=== PATIENT | female | born 1980 | race Caucasian/White ===

== ENCOUNTER 2016-12-18 07:11 | Emergency (ER) | payer SELFPAY ==
[2016-12-18] MEDS ORDERED: HYDROMORPHONE HCL 1 MG/ML CPJ IVP ONE ×2 (07:29→10:11)
[2016-12-18] MEDS ORDERED: 0.9 % SODIUM CHLORIDE 1,000 ML BAG IV ONE ×2 (07:29→08:01)
[2016-12-18] MEDS ORDERED: ONDANSETRON HCL IV 4 MG/2 ML VIAL IV ONE (07:29)
[2016-12-18 07:45] LABS: HEMATOCRIT 47.1 % (35.0-47.0); HEMOGLOBIN 15.8 gm/dl (11.6-16.0); MEAN CELL VOLUME 99.8 fl (81-97); MEAN CORPUSCULAR HEMOGLOBIN 33.5 pg (27-33); MEAN CORPUSCULAR HGB CONC 33.5 g/dl (32-36); MEAN PLATELET VOLUME 9.7 fl (7.4-10.4); PLATELET COUNT 313 K/uL (130-400); RED BLOOD COUNT 4.72 M/uL (3.80-5.40); RED CELL DISTRIBUTION WIDTH 13.3 % (11.5-14.5); WHITE BLOOD COUNT W/O DIFF 17.2 K/uL (4.2-12.2)
--- NOTE | 2016-12-18 07:45 | Emergency Department Record ---
History of Present Illness - General Chief complaint: Nausea, Vomiting, Diarrhea Stated complaint: VOMITING Time Seen by Provider: 12/18/16 07:21 Source: Patient Mode of Arrival: EMS Limitations: No limitations - History of Present Illness Initial comments: The patient is here due to a 4 day hx of frequent nausea, vomiting, and upper abdominal pain. The vomiting is intermittent and is better now. The pain waxes and wanes and she denies any lower abdominal pain, diarrhea, vaginal issues or dysuria. The patient denies vomiting any blood and has a long hx of the same issues. She has been evaluated multiple times in the last 12 years for the same issues and no dx has been given. She states she gets this same problem a few times a year and her only abdominal surgery is a BTL. The patient has a long hx of alcohol abuse and was drinking heavily prior to the onset of the pain. She denies any alcohol intake for the last 4 days and is currently having a menstrual period. MD complaint: Nausea, Vomiting Onset/Timin -: Days(s) Description of Vomiting: Bilious, Watery Associated Abdominal Pain: Yes Location: Diffuse, Epigastric Radiation: None Severity: Mild Severity scale (1-10): 10 Consistency: Constant Improves with: None Worsens with: None Context: Alcohol abuse - Related Data Home Medications Medication Instructions Recorded Confirmed Last Taken Omeprazole Magnesium [Prilosec Otc] 20 mg PO DAILY 12/18/16 12/18/16 12/08/16 Previous Rx's Medication Instructions Recorded Ondansetron [Zofran Odt] 4 mg SL .Q4-6H PRN #12 tab.rapdis 12/18/16 Allergies Allergy/AdvReac Type Severity Reaction Status Date / Time cefaclor [From Ceclor] Allergy Severe HIVES Verified 12/18/16 07:18 Travel Screening - Travel/Exposure Within Last 30 Days Have you traveled within the last 30 days?: No - Travel/Exposure Within Last Year Have you traveled outside the [place] in the last year?: No - Additonal Travel Details Have you been exposed to anyone with a communicable illness?: No - Travel Symptoms Symptom Screening: None Review of Systems Constitutional: Denies: Chills, Fever Eyes: Denies: Eye discharge ENT: Denies: Congestion Respiratory: Denies: Cough, Dyspnea Cardiovascular: Denies: Arrhythmia, Chest pain Past Medical History - SOCIAL HISTORY Smoking Status: Current every day smoker Alcohol Use: Occassional Drug Use: Occassional Drug Use Detail:: Marijuana - RESPIRATORY Hx Respiratory Disorders: No - CARDIOVASCULAR Hx Cardio Disorders: No - NEURO Hx Neuro Disorders: No - GI Hx Reflux: Yes Hx Nausea/Vomiting: Yes Comment:: hx of a lambert badillo tear - Hx Genitourinary Disorders: No - ENDOCRINE Hx Endocrine Disorders: No - MUSCULOSKELETAL Hx Musculoskeletal Disorders: No - PSYCH Hx Psych Problems: No - HEMATOLOGY/ONCOLOGY Hx Hematology/Oncology Disorders: No Family Medical History Any Significant Family History?: Yes Physical Exam - General General Appearance: Alert, Oriented x3, Cooperative, No acute distress - Head Head exam: Atraumatic, Normocephalic, Normal inspection - Eye Eye exam: Normal appearance, PERRL - ENT Throat exam: Normal inspection. negative: Tonsillar erythema, Tonsillar exudate - Neck Neck exam: Normal inspection, Full ROM. negative: Lymphadenopathy, Tenderness - Respiratory Respiratory exam: Normal lung sounds bilaterally. negative: Respiratory distress - Cardiovascular Cardiovascular Exam: Regular rate, Normal rhythm, Normal heart sounds - GI/Abdominal GI/Abdominal exam: Soft, Normal bowel sounds, Tenderness (There is mild epigastric tenderness.). negative: Distended, Guarding, Rebound, Rigid - Extremities Extremities exam: Normal inspection, Full ROM, Normal capillary refill. negative: Tenderness - Neurological Neurological exam: Alert, Normal gait. negative: Abnormal gait, Motor sensory deficit Course Vital Signs 12/18/16 07:12 Temperature 98.9 F Pulse Rate 79 Respiratory 22 Rate Blood Pressure 122/70 Pulse Ox 97 - Reevaluation(s) Reevaluation #1: The patient is doing much better. She is resting comfortably with much less nausea and pain. 12/18/16 08:02 Reevaluation #2: The patient is doing much better at this time. She denies any nausea, vomiting or ANY abdominal pain. She is resting comfortably and has no abdominal tenderness on exam. 12/18/16 08:24 Reevaluation #3: The patient is doing much better at this time. She denies any AP, nausea, or vomiting. I did explain her CT results to her and the need for F/U with her PCP and for possibly to obtain a GI doctor referral for an EGD. 12/18/16 10:54 Medical Decision Making - Data Complexity MDM Data: Labs Ordered and/or Reviewed, X-Ray Ordered and/or Reviewed - Lab Data Result diagrams: 12/18/16 07:10 12/18/16 07:10 - Radiology Data Radiology results: Report reviewed (CT: No acute abnormality. Possible distal esophageal wall thickening.) Disposition Disposition: Discharge Clinical Impression: Vomiting Qualifiers: Vomiting type: unspecified Vomiting Intractability: non-intractable Nausea presence: with nausea Qualified Code(s): R11.2 - Nausea with vomiting, unspecified Disposition: Home, Self-Care Condition: (1) Good Instructions: Acute Nausea and Vomiting (ED) Additional Instructions: Please use the Zofran for nausea and do not drink any alcohol. Please see your PCP later this week for recheck and to discuss the need for a GI doctor referral. Please return to the ER for any worsening of your chronic GI symptoms. Prescriptions: Ondansetron [Zofran Odt] 4 mg SL .Q4-6H PRN #12 tab.rapdis PRN Reason: Nausea Forms: Patient Portal Access Time of Disposition: 10:57 Quality - Quality Measures Quality Measures: N/A - Blood Pressure Screening View Details: Yes Blood Pressure Classification: Hypertensive Reading Systolic Measurement: 142 Diastolic Measurement: 69 Screening for High Blood Pressure: < Pre-Hypertensive BP, F/U Documented > [ G8950] Pre-Hypertensive Follow-up Interventions: Follow-up with rescreen every year.
[2016-12-18 07:58] LABS: ALBUMIN 4.6 gm/dL (3.5-5.0); ALKALINE PHOSPHATASE 61 U/L (38-126); ALT/SGPT 31 U/L (9-52); ANION GAP 15.7 (7-16); AST/SGOT 31 U/L (14-36); BILIRUBIN,TOTAL 1.81 mg/dL (0.2-1.3); BLOOD UREA NITROGEN 14 mg/dL (7-17); CARBON DIOXIDE 25.3 mmol/L (22-30); CREATININE 0.9 mg/dL (0.52-1.04); EST GLOMERULAR FILTRATION RATE > 60 ml/min; GLUCOSE,RANDOM 110 mg/dL (70-110); LIPASE 120 U/L (23-300); TOTAL PROTEIN 7.7 gm/dL (6.3-8.2)
[2016-12-18] MEDS ORDERED: ONDANSETRON HCL IV 4 MG/2 ML VIAL IVP ONE (09:02)
[2016-12-18] MEDS ORDERED: SUCRALFATE 1 G/10 ML UD PO ONE (09:02)
[2016-12-18 09:12] LABS: URINE APPEARANCE CLOUDY; URINE BILIRUBIN MODERATE (NEGATIVE); URINE BLOOD LARGE (NEGATIVE); URINE COLOR ORANGE; URINE GLUCOSE (UA) NEGATIVE (NEGATIVE); URINE LEUKOCYTE ESTERASE NEGATIVE (NEGATIVE); URINE NITRITE NEGATIVE (NEGATIVE); URINE PROTEIN TRACE (NEGATIVE)
[2016-12-18 09:13] LABS: HCG,QUALITATIVE URINE NEGATIVE (NEGATIVE); URINE KETONE 80 mg/dL (NEGATIVE)
[2016-12-18 09:24] LABS: URINE BACTERIA FEW; URINE MUCUS MODERATE; URINE WBC 0 - 2 (0-2/hpf)
--- NOTE | 2016-12-19 09:00 | CT SCAN REPORT ---
EXAM: CT OF THE ABDOMEN AND PELVIS WITHOUT CONTRAST HISTORY: UPPER ABDOMINAL PAIN WITH VOMITING. TECHNIQUE: Helical CT examination of the abdomen and pelvis was performed without oral or intravenous contrast administration. Lack of oral and IV contrast utilization limits evaluation of the bowel and solid viscera respectively. Comparison: None. FINDINGS: The lung bases are clear and there is no pleural or pericardial effusion. The heart is not enlarged. The wall of the distal esophagus appears mildly prominent in thickness. While this likely just relates to incomplete distention, a mucosal abnormality cannot be entirely excluded. Lack of IV contrast utilization limits evaluation of the solid viscera. No suspicious focal abnormality is demonstrated within the liver, spleen, pancreas, left adrenal gland, nor kidneys. A small hypodense mass is demonstrated within the right adrenal gland measuring 10 x 7 mm. This has a density of 5 Hounsfield units and is consistent with a small adenoma. The gallbladder is unremarkable and no biliary ductal dilatation is seen. No intraabdominal nor retroperitoneal lymphadenopathy is identified. The vasculature is unremarkable. No pelvic mass, lymphadenopathy, or free pelvic fluid is seen. The uterus is near the midline. A few follicles are suggested within the right ovary. The ovaries are not enlarged. No intrinsic urinary bladder abnormalities are identified though evaluation is limited by lack of distention. No gross bowel dilatation nor bowel wall thickening is seen. The appendix is visualized and normal in appearance. There may be a few diverticula within the left colon without evidence of diverticulitis. No free intraperitoneal air. A small fat filled umbilical hernia is present measuring 2.1 x 1.6 cm. No lytic or blastic bone lesion is seen. There are mild degenerative changes scattered within the visualized spine. IMPRESSION: 1. THE WALL OF THE DISTAL ESOPHAGUS APPEARS MILDLY PROMINENT IN THICKNESS. WHILE THIS LIKELY RELATES TO INCOMPLETE DISTENTION, MUCOSAL ABNORMALITY CANNOT BE ENTIRELY EXCLUDED. 2. NO CONVINCING CT EVIDENCE OF AN ACUTE INTRAABDOMINAL NOR INTRAPELVIC PROCESS THOUGH EVALUATION IS LIMITED BY LACK OF ORAL AND IV CONTRAST UTILIZATION. 3. NORMAL APPENDIX. 4. SMALL UNCOMPLICATED FAT FILLED UMBILICAL HERNIA. 5. OCCASIONAL DIVERTICULA QUESTIONED IN THE LEFT COLON WITHOUT EVIDENCE OF DIVERTICULITIS. 6. SMALL HYPODENSE NODULE/MASS IN THE RIGHT ADRENAL GLAND CONSISTENT WITH LIPID RICH ADENOMA. JOB NUMBER: [id number] MTDD
== END 2016-12-18 11:22 | disposition home or self-care (01) ==
LOC: ER 07:11
DX: R11.2 Nausea with vomiting, unspecified (principal); R10.13 Epigastric pain; R19.7 Diarrhea, unspecified
CPT/HCPCS: 99284 ×2; 96376; 96374; 96375; 96361; 83690; 80076; 80048; 81001; 81025; 85027; 74176; J2405; J1170; J7030

== ENCOUNTER 2016-12-18 16:52 | Inpatient (IN) | payer SELFPAY ==
[2016-12-18] MEDS ORDERED: HYDROMORPHONE HCL 1 MG/ML CPJ IVP ONE (17:03)
[2016-12-18] MEDS ORDERED: MAGNESIUM HYDROXIDE/AL HYDROX 30 ML, LIDOCAINE VISC 2% 200 MG PO ONE ×2 (17:03)
[2016-12-18] MEDS ORDERED: 0.9 % SODIUM CHLORIDE 1,000 ML BAG IV ONE (17:04)
--- NOTE | 2016-12-18 17:08 | Emergency Department Record ---
History of Present Illness - General Chief Complaint: Abdominal Pain Stated Complaint: ABD PAIN Time Seen by Provider: 12/18/16 16:59 Source: Patient Mode of Arrival: EMS Limitations: No limitations - History of Present Illness Initial Comments: The patient is here due to recurrent nausea, vomiting, and abdominal pain. The pain started 4 days ago after a bout of heavy alcohol intake. She then has had the vomiting, pain and nausea since. She was in the ER 10 hours ago with the same thing and received 2 liters of IVF and had a neg abdominal CT. She did also receive pain meds, Zofran and Carafate and was completely better at discharge. She states the pain returned over the last few hours with vomiting and anxiety. There has been no fever, back pain, or lower abdominal pain. MD Complaint: Abdominal pain Onset/Timin -: Days(s) Location: Diffuse Severity: Moderate Quality: Aching Consistency: Constant - Related Data LMP Date: 12/18/16 Home Medications Medication Instructions Recorded Confirmed Last Taken Omeprazole Magnesium [Prilosec Otc] 20 mg PO DAILY 12/18/16 12/18/16 1 Day Ago ~12/17/16 Previous Rx's Medication Instructions Recorded Ondansetron [Zofran Odt] 4 mg SL .Q4-6H PRN #12 tab.rapdis 12/18/16 Allergies Allergy/AdvReac Type Severity Reaction Status Date / Time cefaclor [From Ceclor] Allergy Severe HIVES Verified 12/18/16 16:59 Travel Screening - Travel/Exposure Within Last 30 Days Have you traveled within the last 30 days?: No - Travel/Exposure Within Last Year Have you traveled outside the [place] in the last year?: No - Additonal Travel Details Have you been exposed to anyone with a communicable illness?: No - Travel Symptoms Symptom Screening: None Review of Systems Constitutional: Denies: Chills, Fever Eyes: Denies: Eye discharge ENT: Denies: Congestion Respiratory: Denies: Cough, Dyspnea Past Medical History - SOCIAL HISTORY Smoking Status: Current every day smoker Alcohol Use: None Drug Use: Occassional Drug Use Detail:: Marijuana - RESPIRATORY Hx Respiratory Disorders: No - CARDIOVASCULAR Hx Cardio Disorders: No - NEURO Hx Neuro Disorders: No - GI Hx GI Disorders: No Hx Reflux: Yes Hx Nausea/Vomiting: Yes Comment:: hx of a lambert badillo tear - Hx Genitourinary Disorders: No - ENDOCRINE Hx Endocrine Disorders: No - MUSCULOSKELETAL Hx Musculoskeletal Disorders: No - PSYCH Hx Psych Problems: No - HEMATOLOGY/ONCOLOGY Hx Hematology/Oncology Disorders: No Family Medical History Any Significant Family History?: Yes Physical Exam - General General Appearance: Alert, Oriented x3, Cooperative, No acute distress - Head Head exam: Atraumatic, Normocephalic, Normal inspection - Eye Eye exam: Normal appearance, PERRL - Neck Neck exam: Normal inspection, Full ROM. negative: Tenderness - Respiratory Respiratory exam: Normal lung sounds bilaterally - Cardiovascular Cardiovascular Exam: Regular rate, Normal rhythm, Normal heart sounds - GI/Abdominal GI/Abdominal exam: Soft, Normal bowel sounds. negative: Distended, Hypoactive bowel sounds, Rebound, Rigid, Tenderness - Extremities Extremities exam: Normal inspection, Full ROM, Normal capillary refill. negative: Tenderness - Back Back exam: Denies: Normal inspection, Vertebral tenderness - Neurological Neurological exam: Alert, Normal gait. negative: Abnormal gait, Motor sensory deficit - Psychiatric Psychiatric exam: Anxious. negative: Agitated, Depressed, Flat affect Course Vital Signs 12/18/16 16:54 Temperature 98.5 F Pulse Rate 73 Respiratory 18 Rate Blood Pressure 161/85 Pulse Ox 100 - Reevaluation(s) Reevaluation #1: The patient is doing much better now after her medicines. She is much more relaxed and denies any pain or nausea. 12/18/16 17:29 Reevaluation #2: The patient is doing much better at this time. She denies any AP and her abdomen is very soft and nontender in all 4 quads. Because of the recurrent nature of her problems I did recommend hospital admission and she agrees. I then did discuss the case with Dr. Parks and he agrees to the plan. 12/18/16 18:05 Medical Decision Making - Data Complexity MDM Data: Labs Ordered and/or Reviewed, EKG Ordered and/or Reviewed - Lab Data Result diagrams: 12/18/16 17:10 12/18/16 17:10 - EKG Data -: EKG Interpreted by Me EKG: No Acute Changes, Normal EKG Disposition Disposition: Admit Clinical Impression: Intractable vomiting with nausea Qualifiers: Vomiting type: cyclical vomiting Qualified Code(s): G43.A1 - Cyclical vomiting , intractable Disposition: Still a Patient at [facility] Decision to Admit: Admit from ER Decision to Admit Date: 12/18/16 Decision to Admit Time: 18:06 Accepting Physician: Kasey Time Discussed w/Accepting Physician: 18:06 Condition: (2) Stable Forms: Patient Portal Access Time of Disposition: 18:06 Quality - Quality Measures Quality Measures: N/A - Blood Pressure Screening Blood Pressure Classification: Pre-Hypertensive BP Reading Systolic Measurement: 161 Diastolic Measurement: 85 Screening for High Blood Pressure: < Pre-Hypertensive BP, F/U Documented > [ G8950] Pre-Hypertensive Follow-up Interventions: Follow-up with rescreen every year.
[2016-12-18 17:20] LABS: BASO % 0.1 % (0-6); EOS % 0.2 % (0-6); GRAN % 78.1 % (47-80); HEMATOCRIT 41.7 % (35.0-47.0); HEMOGLOBIN 13.9 gm/dl (11.6-16.0); MEAN CELL VOLUME 100.2 fl (81-97); MEAN CORPUSCULAR HEMOGLOBIN 33.4 pg (27-33); MEAN CORPUSCULAR HGB CONC 33.3 g/dl (32-36); MEAN PLATELET VOLUME 9.6 fl (7.4-10.4); MONO % 8.6 % (0-9); PLATELET COUNT 290 K/uL (130-400); RED BLOOD COUNT 4.16 M/uL (3.80-5.40); RED CELL DISTRIBUTION WIDTH 13.1 % (11.5-14.5); WHITE BLOOD COUNT W/O DIFF 14.6 K/uL (4.2-12.2)
[2016-12-18] MEDS: PANTOPRAZOLE SODIUM IV 40 MG VIAL IVP ONE (17:23)
[2016-12-18 17:28] LABS: ALB/GLOB RATIO 1.6 (1.1-1.8); ALBUMIN 3.9 gm/dL (3.5-5.0); ALKALINE PHOSPHATASE 47 U/L (38-126); ALT/SGPT 41 U/L (9-52); ANION GAP 10.9 (7-16); AST/SGOT 46 U/L (14-36); BILIRUBIN,TOTAL 1.67 mg/dL (0.2-1.3); BLOOD UREA NITROGEN 12 mg/dL (7-17); CARBON DIOXIDE 23.1 mmol/L (22-30); CREATININE 0.7 mg/dL (0.52-1.04); EST GLOMERULAR FILTRATION RATE > 60 ml/min; GLUCOSE,RANDOM 92 mg/dL (70-110); LIPASE 219 U/L (23-300); TOTAL PROTEIN 6.4 gm/dL (6.3-8.2)
[2016-12-18] MEDS ORDERED: POTASSIUM CHLORIDE/D5-0.9%NACL 20 MEQ/1,000 ML BAG IV ONE (18:35)
[2016-12-18] MEDS: HYDROMORPHONE HCL 1 MG/ML CPJ IVP PRN ×2 (18:55→22:57)
[2016-12-18] MEDS: ONDANSETRON HCL IV 4 MG/2 ML VIAL IVP PRN (20:53)
[2016-12-18] MEDS ORDERED: DIPHENHYDRAMINE HCL 25 MG CAPSULE PO PRN (21:51)
[2016-12-19] MEDS: ONDANSETRON HCL IV 4 MG/2 ML VIAL IVP PRN ×5 (02:20→20:19)
[2016-12-19] MEDS: HYDROMORPHONE HCL 1 MG/ML CPJ IVP PRN ×5 (02:55→20:13)
[2016-12-19 06:13] LABS: BASO % 0.2 % (0-6); EOS % 0.5 % (0-6); GRAN % 69.1 % (47-80); HEMATOCRIT 41.5 % (35.0-47.0); HEMOGLOBIN 13.5 gm/dl (11.6-16.0); LYMPH % 20.6 % (16-45); MEAN CELL VOLUME 101.7 fl (81-97); MEAN CORPUSCULAR HEMOGLOBIN 33.1 pg (27-33); MEAN CORPUSCULAR HGB CONC 32.5 g/dl (32-36); MEAN PLATELET VOLUME 9.2 fl (7.4-10.4); MONO % 9.6 % (0-9); PLATELET COUNT 260 K/uL (130-400); RED BLOOD COUNT 4.08 M/uL (3.80-5.40); RED CELL DISTRIBUTION WIDTH 13.2 % (11.5-14.5); WHITE BLOOD COUNT W/O DIFF 10.1 K/uL (4.2-12.2)
[2016-12-19 06:36] LABS: ALB/GLOB RATIO 1.6 (1.1-1.8); ALBUMIN 3.6 gm/dL (3.5-5.0); ALKALINE PHOSPHATASE 46 U/L (38-126); ALT/SGPT 50 U/L (9-52); ANION GAP 10.4 (7-16); AST/SGOT 27 U/L (14-36); BILIRUBIN,TOTAL 1.31 mg/dL (0.2-1.3); BLOOD UREA NITROGEN 8 mg/dL (7-17); CARBON DIOXIDE 24.6 mmol/L (22-30); CREATININE 0.8 mg/dL (0.52-1.04); EST GLOMERULAR FILTRATION RATE > 60 ml/min; GLUCOSE,RANDOM 101 mg/dL (70-110); LIPASE 145 U/L (23-300); TOTAL PROTEIN 5.9 gm/dL (6.3-8.2)
[2016-12-19] MEDS ORDERED: PANTOPRAZOLE SODIUM IV 40 MG VIAL IV SCH (10:00)
[2016-12-19] MEDS ORDERED: DIPHENHYDRAMINE HCL IV 50 MG/ML VIAL IVP PRN (10:22)
--- NOTE | 2016-12-19 10:49 | History & Physical ---
History of Present Illness - Date of Service Date of Service for History & Physical: 12/19/16 - History of Present Illness Admitting Diagnosis: 1. Intractable vomiting with abdominal pain. History of Present Illness: 36 yo female admitted w/ CC of epigastric pain. PMHx of abdominal pain, smoking , h/o alcohol abuse, anxiety. Patient presented to our ED yesterday morning for abdominal pain. CTA relatively unremarkable aside from potentially thickened esophagus. She was given 2 L's of IVFs, 1 mg of Dilaudid, 8 mg of Zofran and 1 gm of Carafate. Patient d/c'd encouraged to follow up with her PCP for referral to GI. Patient presented back to our ED around 3 pm and was admitted. This morning, patient is lying in bed sleeping. When awoken, patient became very anxious that she was being discharged. Patient then began to c/o extreme epigastric pain. Requesting her pain medication. Pain described as sharp, stabbing, burning. Rated 5/10 in severity. Aggravated by etoh use. States she drank multiple margaritas on Sunday, which exacerbated her pain. She admits to etoh abuse daily since December 12. Unable to tell me how much she's been drinking every day though states she's been drinking liquor. Pain alleviated by 0.5 mg of Dilaudid, zofran, NPO and rest. Associated symptoms include nausea, anxiety, acid reflux. She has not vomited during her admission. She denies any vaginal d/c, pain with urination, hemautria, change in bowel habits, back pain, black or bloody stool, blood in vomit, or fever/ chills. Patient reports similar hospitalizations for these exact same symptoms. States she hasn't been hospitalized in the past year for them, however. Denies drug use. Abd surgeries include BTL. Long h/o acid reflux- can only afford to take omeprazole 20 mg prn. Travel Screening - Travel/Exposure Within Last 30 Days Have you traveled within the last 30 days?: No - Travel/Exposure Within Last Year Have you traveled outside the [place] in the last year?: No - Additonal Travel Details Have you been exposed to anyone with a communicable illness?: No - Travel Symptoms Symptom Screening: None Review of Systems Constitutional: Denies: Chills, Fever Eyes: Denies: Eye discharge ENT: Denies: Congestion Respiratory: Denies: Cough, Dyspnea Cardiovascular: Denies: Chest pain, Dyspnea on exertion, Edema, Palpitations Gastrointestinal: Reports: Abdominal pain (epigastrium ), Nausea. Denies: Constipation, Diarrhea, Hematemesis, Hematochezia, Melena, Vomiting Genitourinary: Denies: Abnormal menses, Dysuria, Hematuria, Urgency Musculoskeletal: Denies: Back pain, Myalgia Skin: Denies: Change in color Neurological: Denies: Abnormal gait, Confusion Psychiatric: Reports: Anxiety. Denies: Depression Hematological/Lymphatic: Denies: Easy bleeding Past Medical History - SOCIAL HISTORY Smoking Status: Current every day smoker Alcohol Use: Heavy Alcohol Use Comment: daily 12/12/16-12/15/16 until abdominal pain started on 12/15/16 Drug Use: Occassional Drug Use Detail:: Marijuana - RESPIRATORY Hx Respiratory Disorders: No - CARDIOVASCULAR Hx Cardio Disorders: No - NEURO Hx Neuro Disorders: No - GI Hx GI Disorders: No Hx Reflux: Yes Hx Nausea/Vomiting: Yes Comment:: hx of a lambert badillo tear with hyperemesis gravidarum - Hx Genitourinary Disorders: No - ENDOCRINE Hx Endocrine Disorders: No - MUSCULOSKELETAL Hx Musculoskeletal Disorders: No - PSYCH Hx Psych Problems: No - HEMATOLOGY/ONCOLOGY Hx Hematology/Oncology Disorders: No Family Medical History Any Significant Family History?: Yes H&P Meds/Allergies - Allergies Allergies: Allergies Allergy/AdvReac Type Severity Reaction Status Date / Time cefaclor [From Ceclor] Allergy Severe HIVES Verified 12/18/16 16:59 - Home Medications Home Medications Medication Instructions Recorded Confirmed Last Taken Omeprazole Magnesium [Prilosec Otc] 20 mg PO DAILY 12/18/16 12/18/16 1 Day Ago ~12/17/16 Previous Rx's Medication Instructions Recorded Ondansetron [Zofran Odt] 4 mg SL .Q4-6H PRN #12 tab.rapdis 12/18/16 - Active Medications Active Medications: Current Medications Diphenhydramine HCl (Benadryl Capsule) 50 mg PO QHS PRN PRN Reason: INSOMNIA Last Admin: 12/18/16 21:56 Dose: 50 mg Diphenhydramine HCl (Benadryl Iv) 50 mg IVP QHS PRN PRN Reason: SLEEP Hydromorphone HCl (Dilaudid) 0.5 mg IVP Q4H PRN PRN Reason: Abdominal Pain Last Admin: 12/19/16 07:07 Dose: 0.5 mg Ondansetron HCl (Zofran) 4 mg IVP Q4H PRN PRN Reason: NAUSEA Last Admin: 12/19/16 10:23 Dose: 4 mg Pantoprazole Sodium (Protonix Iv) 40 mg IV BID TAYE Sucralfate (Carafate) 1 g PO QID TAYE Physical Exam - Vital Signs Vital Signs: Vital Signs - Last 24 Hrs Temp Pulse Resp BP Pulse Ox 12/19/16 08:23 98.1 F 98 H 20 109/74 98 12/19/16 06:00 98.5 F 55 L 18 156/87 96 12/18/16 23:00 98.6 F 54 L 16 130/73 94 L 12/18/16 20:46 98.3 F 50 L 16 150/81 98 - General General Appearance: Alert, Oriented x3, Cooperative, No acute distress Limitations: No limitations - Head Head exam: Atraumatic, Normocephalic, Normal inspection - Eye Eye exam: Normal appearance, PERRL - ENT ENT exam: Normal exam Ear exam: Normal external inspection Nasal Exam: Normal inspection Mouth exam: Normal external inspection - Neck Neck exam: Normal inspection, Full ROM. negative: Tenderness - Respiratory Respiratory exam: Normal lung sounds bilaterally - Cardiovascular Cardiovascular Exam: Regular rate, Normal rhythm, Normal heart sounds - GI/Abdominal GI/Abdominal exam: Soft, Normal bowel sounds, Tenderness (epigastrium). negative: Diminished bowel sounds, Distended, Guarding, Hyperactive bowel sounds , Hypoactive bowel sounds, Rebound, Rigid - Rectal Rectal exam: Deferred - exam: Deferred - Extremities Extremities exam: Normal inspection, Full ROM, Normal capillary refill. negative: Tenderness - Back Back exam: Denies: Normal inspection, Vertebral tenderness - Neurological Neurological exam: Alert, Normal gait. negative: Abnormal gait, Motor sensory deficit - Psychiatric Psychiatric exam: Anxious. negative: Agitated, Depressed, Flat affect Results - Labs Result Diagrams: 12/19/16 06:05 12/19/16 06:05 Labs Last 24 Hours: Laboratory Results - last 24 hr 12/19/16 12/19/16 06:05 06:05 WBC 10.1 RBC 4.08 Hgb 13.5 Hct 41.5 MCV 101.7 H MCH 33.1 H MCHC 32.5 RDW 13.2 Plt Count 260 MPV 9.2 Gran % 69.1 Lymphocytes % 20.6 Monocytes % 9.6 H Eosinophils % 0.5 Basophils % 0.2 Sodium 144 Potassium 4.1 Chloride 109 H Carbon Dioxide 24.6 Anion Gap 10.4 BUN 8 Creatinine 0.8 Estimated GFR > 60 Random Glucose 101 Calcium 8.0 L Total Bilirubin 1.31 H AST 27 ALT 50 Alkaline Phosphatase 46 Total Protein 5.9 L Albumin 3.6 Globulin 2.3 Albumin/Globulin Ratio 1.6 Lipase 145 VTE H&P Assessment - Risk for VTE Risk for VTE: Yes Risk Level: Very Low Risk Assessment Date: 12/19/16 Risk Assessment Time: 10:00 VTE Orders Placed or Will Be Placed: Yes Plan - Detailed Diagnosis and Plan (1) Epigastric pain Current Visit: Yes Status: Acute Base Code: R10.13 - EPIGASTRIC PAIN Comment: 12/19/16: gastritis vs. gastroparesis vs. other? - CTA potential thickened esophagus, o/w relatively unreamrkable. WBC normal. Afebrile. - normal lipase. ALT/AST normalized. Bilirubin trending down (i suspect elevated due to etoh abuse) - Protonix 40 mg BID, carafate 1 gm QID - Dilaudid 0.5 mg Q4 hours PRN (will trial transition to PO pain medications later today) - anti emetics (IV Zofran PRN) - Will continue to hold IVF's if patient tolerates PO liquids. - CLD - monitor for vomiting, blood in stool, hematemesis. - patient needs family physician and likely GI referral. (2) Acid reflux Current Visit: Yes Status: Acute Base Code: K21.9 - GASTRO-ESOPHAGEAL REFLUX DISEASE WITHOUT ESOPHAGITIS Comment: 12/19/16: will increase protonix to 40 mg IV BID and add carafate 1 gm QID. Clear liquids as tolerated. (3) DVT prophylaxis Current Visit: Yes Status: Acute Base Code: [id number] - Comment: 12/19/16: low risk- decreased mobility. ambulating through the room. SCDs WIB. (4) Full code status Current Visit: Yes Status: Acute Base Code: Z78.9 - OTHER SPECIFIED HEALTH STATUS Comment: 12/19/16: she will remain full code
[2016-12-19] MEDS: SUCRALFATE 1 G/10 ML UD PO SCH ×3 (12:06→20:23)
[2016-12-19] MEDS: PANTOPRAZOLE SODIUM IV 40 MG VIAL IVP ONE (12:06)
[2016-12-19] MEDS ORDERED: MECLIZINE 25 MG TABLET PO PRN (16:26)
[2016-12-20] MEDS: ONDANSETRON HCL IV 4 MG/2 ML VIAL IVP PRN ×6 (00:30→21:16)
[2016-12-20] MEDS: PANTOPRAZOLE SODIUM IV 40 MG VIAL IV SCH ×3 (00:33→21:16)
[2016-12-20] MEDS: HYDROMORPHONE HCL 1 MG/ML CPJ IVP PRN ×6 (00:35→21:17)
[2016-12-20] MEDS: SUCRALFATE 1 G/10 ML UD PO SCH ×5 (00:41→21:16)
--- NOTE | 2016-12-20 12:54 | Physician Progress Note ---
Subjective - Date Date of Physician Progress Note: 12/20/16 - Subjective Subjective Comment: lying in bed. states she feels much better than yesterday. trialled ice chips , however threw it up this morning. she's starting to have more of an appetite. epigastric pain continues, though significantly improved. admits to a lot of stress at home. has slept most of the morning. went about 5 hours without IV pain medications. nausea improved. no diarrhea/constipation. Objective - Vital Signs Vital Signs: Vital Signs - Last 24 Hrs Temp Pulse Resp BP BP Pulse Ox 12/20/16 07:59 54 L 16 12/20/16 07:58 99.0 F 54 L 16 159/91 97 12/20/16 04:25 99.1 F 50 L 16 174/84 97 12/19/16 18:58 20 12/19/16 18:00 141/78 12/19/16 14:47 97 F L 190/96 12/19/16 14:00 97 H 20 190/96 - General General Appearance: Alert, Oriented x3, Cooperative, No acute distress Limitations: No limitations - Head Head exam: Atraumatic, Normocephalic, Normal inspection - Eye Eye exam: Normal appearance, PERRL - ENT ENT exam: Normal exam Ear exam: Normal external inspection Nasal Exam: Normal inspection Mouth exam: Normal external inspection - Neck Neck exam: Normal inspection, Full ROM. negative: Tenderness - Respiratory Respiratory exam: Normal lung sounds bilaterally - Cardiovascular Cardiovascular Exam: Regular rate, Normal rhythm, Normal heart sounds - GI/Abdominal GI/Abdominal exam: Soft, Normal bowel sounds, Tenderness (epigastrium, improved) . negative: Diminished bowel sounds, Distended, Guarding, Hyperactive bowel sounds, Hypoactive bowel sounds, Rebound, Rigid - Rectal Rectal exam: Deferred - exam: Deferred - Extremities Extremities exam: Normal inspection, Full ROM, Normal capillary refill. negative: Tenderness - Back Back exam: Denies: Normal inspection, Vertebral tenderness - Neurological Neurological exam: Alert, Normal gait. negative: Abnormal gait, Motor sensory deficit - Psychiatric Psychiatric exam: Anxious. negative: Agitated, Depressed, Flat affect Assessment and Plan - Assessment and Plan (1) Epigastric pain Current Visit: Yes Status: Acute Base Code: R10.13 - EPIGASTRIC PAIN Comment: 12/20/16: gastritis vs. gastroparesis vs. other? - CTA potential thickened esophagus, o/w relatively unreamrkable. WBC normal. Afebrile. - normal lipase. ALT/AST normalized. Bilirubin trending down (i suspect elevated due to etoh abuse) - Protonix 40 mg BID, carafate 1 gm QID - Dilaudid 0.5 mg Q4 hours PRN- I will, once again, trial transition to PO pain medications later today. - anti emetics (IV Zofran PRN) - Will continue to hold IVF's if patient tolerates PO liquids. - CLD - monitor for vomiting, blood in stool, hematemesis. - patient needs family physician - GI referral placed (2) Acid reflux Current Visit: Yes Status: Acute Base Code: K21.9 - GASTRO-ESOPHAGEAL REFLUX DISEASE WITHOUT ESOPHAGITIS Comment: 12/20/16: continue protonix to 40 mg IV BID and carafate 1 gm QID. Clear liquids as tolerated. (3) DVT prophylaxis Current Visit: Yes Status: Acute Base Code: [id number] - Comment: 12/20/16: low risk- decreased mobility. ambulating through the room. SCDs WIB. (4) Full code status Current Visit: Yes Status: Acute Base Code: Z78.9 - OTHER SPECIFIED HEALTH STATUS Comment: 12/20/16: she will remain full code Results - Labs Result Diagrams: 12/19/16 06:05 12/19/16 06:05 DVT/PE Assessment - Risk for VTE Risk for VTE: No Risk Level: Very Low Risk Assessment Date: 12/19/16 Risk Assessment Time: 10:00 VTE Orders Placed or Will Be Placed: Yes - Active Medicaitons Current Medications: Current Medications Diphenhydramine HCl (Benadryl Capsule) 50 mg PO QHS PRN PRN Reason: INSOMNIA Last Admin: 12/18/16 21:56 Dose: 50 mg Diphenhydramine HCl (Benadryl Iv) 50 mg IVP QHS PRN PRN Reason: SLEEP Hydromorphone HCl (Dilaudid) 0.5 mg IVP Q4H PRN PRN Reason: Abdominal Pain Last Admin: 12/20/16 12:40 Dose: 0.5 mg Meclizine HCl (Antivert) 25 mg PO Q8H PRN PRN Reason: Dizziness Ondansetron HCl (Zofran) 4 mg IVP Q4H PRN PRN Reason: NAUSEA Last Admin: 12/20/16 12:41 Dose: 4 mg Pantoprazole Sodium (Protonix Iv) 40 mg IV BID [facility] Last Admin: 12/20/16 09:33 Dose: 40 mg Sucralfate (Carafate) 1 g PO QID [facility] Last Admin: 12/20/16 09:32 Dose: 1 g AMI Plan - Labs Result Diagrams: 12/19/16 06:05 12/19/16 06:05
[2016-12-21] MEDS: HYDROMORPHONE HCL 1 MG/ML CPJ IVP PRN ×2 (01:22→07:06)
[2016-12-21] MEDS: ONDANSETRON HCL IV 4 MG/2 ML VIAL IVP PRN ×2 (01:24→07:06)
--- NOTE | 2016-12-21 10:44 | Discharge Summary ---
Providers Discharge Summary Date: 12/21/16 Date of admission: 12/18/16 18:20 Expected Date of Discharge: 12/21/16 Attending physician: CARIN ALARCON Consults: Consult Orders 12/20/16 10:36 Consult NOW Consulting Provider: DOREEN BUENROSTRO Physician Instructions: Reason For Exam: n/v, epigastric pain, potential esophagitis Physical Exam - Vital Signs Vital Signs: Vital Signs - Last 24 Hrs Temp Pulse Resp BP Pulse Ox 12/21/16 09:00 97.7 F 58 L 16 132/77 96 12/21/16 01:30 98.9 F 59 L 16 138/77 99 12/20/16 18:52 98.7 F 58 L 14 158/78 97 12/20/16 15:00 98.7 F 53 L 14 151/98 96 12/20/16 11:00 98.8 F 58 L 14 148/90 96 - General General Appearance: Alert, Oriented x3, Cooperative, No acute distress Limitations: No limitations - Head Head exam: Atraumatic, Normocephalic, Normal inspection - Eye Eye exam: Normal appearance, PERRL - ENT ENT exam: Normal exam Ear exam: Normal external inspection Nasal Exam: Normal inspection Mouth exam: Normal external inspection - Neck Neck exam: Normal inspection, Full ROM. negative: Tenderness - Respiratory Respiratory exam: Normal lung sounds bilaterally - Cardiovascular Cardiovascular Exam: Regular rate, Normal rhythm, Normal heart sounds - GI/Abdominal GI/Abdominal exam: Soft, Normal bowel sounds. negative: Diminished bowel sounds , Distended, Guarding, Hyperactive bowel sounds, Hypoactive bowel sounds, Rebound, Rigid, Tenderness - Rectal Rectal exam: Deferred - exam: Deferred - Extremities Extremities exam: Normal inspection, Full ROM, Normal capillary refill. negative: Tenderness - Back Back exam: Denies: Normal inspection, Vertebral tenderness - Neurological Neurological exam: Alert, Normal gait. negative: Abnormal gait, Motor sensory deficit - Psychiatric Psychiatric exam: Anxious. negative: Agitated, Depressed, Flat affect Hospitalization - Hospitalization Admission Diagnosis: 1. Intractable vomiting with abdominal pain. - Problem List/Discharge Diagnosis (1) Epigastric pain Current Visit: Yes Status: Acute Base Code: R10.13 - EPIGASTRIC PAIN Comment: 12/21/16: esophagitis vs. gastritis vs. gastroparesis vs. other? - CTA potential thickened esophagus, o/w relatively unreamrkable. WBC normal. Afebrile. - normal lipase. ALT/AST normalized. Bilirubin trending down (i suspect elevated due to etoh abuse) - EGD 12/21/16: esophgeal ulcers, repeat EGD recommended in 6-[address] Buenrostro's office at [phone] re scheduling this. - Continue PPI 40 mg BID, carafate 1 gm QID PRN. These have been sent to pharmacy - anti emetics (PO Zofran 4 mg TID prn) PRN - acid reflux diet - establish care with family doctor - return as needed (2) Acid reflux Current Visit: Yes Status: Acute Base Code: K21.9 - GASTRO-ESOPHAGEAL REFLUX DISEASE WITHOUT ESOPHAGITIS Comment: 12/21/16: continue ppi therapy 40 mg PO BID and carafate 1 gm QID prn. (3) Full code status Current Visit: Yes Status: Acute Base Code: Z78.9 - OTHER SPECIFIED HEALTH STATUS Comment: 12/21/16: pt remained full code - Hospitalization Course Disposition: Home, Self-Care Hospital Course: 36 yo female admitted w/ CC of epigastric pain. PMHx of abdominal pain, smoking , h/o alcohol abuse, anxiety. Patient presented to our ED yesterday morning for abdominal pain. CTA relatively unremarkable aside from potentially thickened esophagus. She was given 2 L's of IVFs, 1 mg of Dilaudid, 8 mg of Zofran and 1 gm of Carafate. Patient d/c'd encouraged to follow up with her PCP for referral to GI. Patient presented back to our ED around 3 pm and was admitted. This morning, patient is lying in bed sleeping. When awoken, patient became very anxious that she was being discharged. Patient then began to c/o extreme epigastric pain. Requesting her pain medication. Pain described as sharp, stabbing, burning. Rated 5/10 in severity. Aggravated by etoh use. States she drank multiple margaritas on Sunday, which exacerbated her pain. She admits to etoh abuse daily since December 12. Unable to tell me how much she's been drinking every day though states she's been drinking liquor. Pain alleviated by 0.5 mg of Dilaudid, zofran, NPO and rest. Associated symptoms include nausea, anxiety, acid reflux. She has not vomited during her admission. She denies any vaginal d/c, pain with urination, hemautria, change in bowel habits, back pain, black or bloody stool, blood in vomit, or fever/ chills. Patient reports similar hospitalizations for these exact same symptoms. States she hasn't been hospitalized in the past year for them, however. Denies drug use. Abd surgeries include BTL. Long h/o acid reflux- can only afford to take omeprazole 20 mg prn. 12/21/16: patient lying in bed comfortably. states she feels much better than she has the last few days. she has not required any IV pain medications over the past 6 hours, which is an improvement. she tolerated liquids prior to midnight. Scheduled for EGD later today. no new concerns. Abnormal Labs: Abnormal Lab Results 12/19/16 12/19/16 Range/Units 06:05 06:05 MCV 101.7 H (81-97) fl MCH 33.1 H (27-33) pg Monocytes % 9.6 H (0-9) % Chloride 109 H (98-107) mmol/L Calcium 8.0 L (8.5-10.1) mg/dL Total Bilirubin 1.31 H (0.2-1.3) mg/dL Total Protein 5.9 L (6.3-8.2) gm/dL Condition at Discharge: (2) Stable Discharge Medications - Discharge Medications Prescriptions: Omeprazole 40 mg PO BID #60 capsule. Sucralfate [Carafate] 1 g PO QID PRN #30 PRN Reason: Heartburn Home Medications: Ambulatory Orders Omeprazole 40 mg PO BID #60 capsule. 12/21/16 [Last Taken Unknown] Ondansetron [Zofran Odt] 4 mg SL TID PRN #12 tab.rapdis 12/21/16 [Last Taken 1 Day Ago ~12/17/16] Sucralfate [Carafate] 1 g PO QID PRN #30 12/21/16 [Last Taken Unknown] Discharge Plan - Discharge Instructions Activity at Discharge: Increase Activity as Tolerated Diet at Discharge: Other (low acid diet) Additional Instructions: Please start taking Omeprazole 40 mg twice daily 30 minutes prior to a meal. Follow low acid diet. [place] follow [place] [facility] [place] [phone]. Zofran as needed for nausea. Avoid ibuprofen, aleve, advil, motrin. Establish care with primary physician within the next 1-2 weeks. return as needed
[2016-12-21] MEDS: SUCRALFATE 1 G/10 ML UD PO SCH ×2 (11:10→15:38)
[2016-12-21] MEDS: PANTOPRAZOLE SODIUM IV 40 MG VIAL IV SCH (11:20)
[2016-12-21] MEDS ORDERED: FENTANYL PF 100MCG/2ML VIAL IV ONE (16:13)
[2016-12-21] MEDS ORDERED: PROPOFOL 10 MG/ML VIAL IV ONE (16:13)
[2016-12-21] MEDS ORDERED: LIDOCAINE 2% MDV (20MG/ML) 20ML VIAL IV ONE (16:13)
--- NOTE | 2016-12-26 19:03 | Medical Records Consult ---
DATE OF CONSULTATION: 12/21/2016 REASON FOR CONSULTATION: Epigastric pain, nausea, vomiting. HISTORY OF PRESENT ILLNESS: The patient is a 36-year-old woman who has developed recurrent nausea and vomiting, epigastric pain. This began several days ago. She has had recurrent bouts of this for many years. She had this during possibly as well as post . She has had repeated bouts of nausea and vomiting. She has been told that they thought she might have cyclic nausea and vomiting and perhaps even may have marijuana-induced cyclic nausea/vomiting syndrome. However, this has been somewhat unclear. She denies any melena, hematochezia, constipation, or diarrhea. She does admit to great deals of stress at home. She has not used any regular medication other than omeprazole and previously had used some sublingual Zofran. PAST MEDICAL HISTORY: Unremarkable. PAST SURGICAL HISTORY: Noncontributory. FAMILY HISTORY: Noncontributory. ALLERGIES: CECLOR. SOCIAL HISTORY: She does smoke cigarettes, has used alcohol heavily in the past and also uses marijuana several days per week. HOME MEDICATIONS: 1. Omeprazole. 2. Zofran. REVIEW OF SYSTEMS: Noted per the admission H&P and the emergency room chart. No additions otherwise noted in the History of Present Illness. PHYSICAL EXAMINATION: VITAL SIGNS: Pulse 100, she is afebrile, respirations 20, blood pressure 105/58, saturation 99%. GENERAL: She is awake, alert, oriented x3, nontoxic in appearance. Appears to be in no acute distress. HEENT: Head is normocephalic and atraumatic. No temporal muscle wasting was noted. Skin was warm and dry and not jaundiced. Extraocular muscles intact. No conjunctival injection or scleral icterus appreciable. NECK: Supple. Trachea is midline. Thyroid nonpalpable. HEART: Regular rate and rhythm without murmur. LUNGS: Coarse breath sounds diffusely. No wheezing, rhonchi, or rales were noted. Normal to percussion. ABDOMEN: Soft. Positive bowel sounds. Mild epigastric palpation tenderness. There is no hepatosplenomegaly. There is no guarding, rebound, or rigidity noted. EXTREMITIES: No clubbing, cyanosis, or edema. LABORATORY DATA: White count 10.1, hemoglobin 13.5, hematocrit 41.5, platelets 260. Sodium 144, potassium 4.1, chloride 109, CO2 24.6, BUN 8, creatinine 0.8, total bilirubin 1.3, AST 27, ALT 50, alkaline phosphatase 46, albumin 3.6, lipase 145. CTA of the abdomen was performed which was unremarkable other than potentially thickened esophagus. IMPRESSION: Recurrent epigastric pain with associated nausea and vomiting. This may be related to a functional disorder versus alcohol induced and/or cyclic nausea/vomiting syndrome which may be exacerbated by the chronic marijuana use. RECOMMENDATION: We will proceed with an upper endoscopy to further evaluate the thickening of the esophagus seen on CTA as well as the recurrent nausea, vomiting, epigastric discomfort. Further recommendations will be forthcoming once endoscopy results are available. As always, thank you for allowing me to participate in the healthcare of your patients. CC: MAUREEN Farris Dr.
== END 2016-12-21 16:14 | disposition home or self-care (01) | DRG 382 ==
LOC: ER 16:52 → MEDSURG 18:20 → OBSVTOIN 18:20
PROVIDERS: ADMIT Emergency Medicine; ATTEND Family Medicine
PROC: 0DB48ZX Excision of Esophagogastric Junction, Via Natural or Artificial Opening Endoscopic, Diagnostic (ICD-10-PCS; principal; 2016-12-18)
DX: K22.10 Ulcer of esophagus without bleeding (principal); F17.200 Nicotine dependence, unspecified, uncomplicated; F12.90 Cannabis use, unspecified, uncomplicated; K29.50 Unspecified chronic gastritis without bleeding
CPT/HCPCS: 80053; 83690; 85025; 93005; 93010; 96374; 96375; 99223; 99233; 99239; 99285; C9113; J1170; J2405; J3480; J7030

== ENCOUNTER 2017-04-30 02:58 | Observation (INO) | payer SELFPAY ==
[2017-04-30] MEDS ORDERED: PROMETHAZINE HCL 25 MG in 0.9 % SODIUM CHLORIDE 100ML 100 ML IVPB ONE (03:02)
[2017-04-30] MEDS ORDERED: ONDANSETRON HCL IV 4 MG/2 ML VIAL IVP ONE (03:02)
[2017-04-30] MEDS ORDERED: DIAZEPAM 5 MG/1 ML TUBX IVP ONE (03:09)
[2017-04-30] MEDS ORDERED: 0.9 % SODIUM CHLORIDE 1000ML 1,000 ML IV SCH (03:15)
--- NOTE | 2017-04-30 03:15 | Emergency Department Record ---
History of Present Illness - General Chief complaint: Vomiting Stated complaint: VOMITING Time Seen by Provider: 04/30/17 02:58 Source: Patient Mode of Arrival: Ambulatory Limitations: No limitations - History of Present Illness Initial comments: 37 yo female presents to ED for evaluation of intermittent nausea and vomiting symptoms that began approximately 23 hours ago. Patient reports a long history of cyclical vomiting syndrome, reports that cause of her symptoms is unknown. Patient has undergone numerous CT imaging studies that have been negative, reports that she has undergone EGD in December demonstrating esophagitis. Patient denies fevers, chills, or recent illness but does report that she stopped her Prilosec 4 days ago and did smoke marijuana this morning. MD complaint: Nausea, Vomiting Onset/Timin -: Days(s) Associated Abdominal Pain: Yes Location: Epigastric Radiation: Chest Severity: Severe Severity scale (1-10): 10 Consistency: Constant Improves with: None Worsens with: None Context: Other Associated Symptoms: Nausea/vomiting - Related Data Allergies Allergy/AdvReac Type Severity Reaction Status Date / Time cefaclor [From Ceclor] Allergy Severe HIVES Verified 12/18/16 16:59 Travel Screening - Travel/Exposure Within Last 30 Days Have you traveled within the last 30 days?: No Review of Systems Constitutional: Denies: Chills, Fever, Malaise, Night sweats Eyes: Denies: Eye discharge, Eye pain ENT: Denies: Congestion, Ear pain, Epistaxis Respiratory: Denies: Cough, Dyspnea Cardiovascular: Denies: Chest pain, Dyspnea on exertion Endocrine: Denies: Fatigue, Heat or cold intolerance Gastrointestinal: Reports: Abdominal pain, Nausea, Vomiting. Denies: Constipation Genitourinary: Denies: Incontinence, Retention Musculoskeletal: Denies: Arthralgia, Back pain, Gout, Joint swelling Skin: Denies: Bruising, Change in color Neurological: Denies: Abnormal gait, Confusion, Headache, Seizure Psychiatric: Reports: Anxiety Hematological/Lymphatic: Denies: Anemia, Blood Clots Past Medical History - SOCIAL HISTORY Smoking Status: Current every day smoker Alcohol Use: None Alcohol Use Comment: quit in November Drug Use: Heavy Drug Use Detail:: Marijuana - RESPIRATORY Hx Respiratory Disorders: No - CARDIOVASCULAR Hx Cardio Disorders: No - NEURO Hx Neuro Disorders: No - GI Hx GI Disorders: Yes Hx Reflux: Yes Hx Nausea/Vomiting: Yes Hx Ulcer: Yes (Gastric Ulcer 11/2016) Comment:: hx of a lambert badillo tear with hyperemesis gravidarum - Hx Genitourinary Disorders: No - ENDOCRINE Hx Endocrine Disorders: No - MUSCULOSKELETAL Hx Musculoskeletal Disorders: No - PSYCH Hx Psych Problems: No - HEMATOLOGY/ONCOLOGY Hx Hematology/Oncology Disorders: No Family Medical History Any Significant Family History?: No Physical Exam - General General Appearance: Alert, Oriented x3, Anxious, Other (Patient appears very anxious on examination, repeating "I need something for my pain" over and over, does exhibit dry heaves on examination without producing any emesis.) Limitations: No limitations - Head Head exam: Atraumatic, Normocephalic, Normal inspection Head exam detail: negative: Abrasion, Contusion, Longoria's sign, General tenderness, Hematoma, Laceration - Eye Eye exam: Normal appearance. negative: Conjunctival injection, Periorbital swelling, Periorbital tenderness, Scleral icterus - ENT Ear exam: negative: Auricular hematoma, Auricular trauma Nasal Exam: negative: Active bleeding, Discharge, Dried blood, Foreign body Mouth exam: negative: Drooling, Laceration, Muffled voice, Tongue elevation - Neck Neck exam: Normal inspection. negative: Meningismus, Tenderness - Respiratory Respiratory exam: Normal lung sounds bilaterally. negative: Rales, Respiratory distress, Rhonchi, Stridor - Cardiovascular Cardiovascular Exam: Regular rate, Normal rhythm, Normal heart sounds - GI/Abdominal GI/Abdominal exam: Soft. negative: Rebound, Rigid, Tenderness - Rectal Rectal exam: Deferred - exam: Deferred - Extremities Extremities exam: Normal inspection. negative: Calf tenderness, Pedal edema, Tenderness - Back Back exam: Denies: CVA tenderness (R), CVA tenderness (L) - Neurological Neurological exam: Alert, Oriented X3 - Psychiatric Psychiatric exam: Anxious - Skin Skin exam: Normal color. negative: Abrasion Type of lesion: negative: abrasion Course Vital Signs 04/30/17 03:00 Pulse Rate 78 Respiratory 18 Rate Blood Pressure 130/97 Pulse Ox 99 - Reevaluation(s) Reevaluation #1: 04/30/17 03:16 Patient initially presents to ED via EMS, appears very calm on examination, however on examination appears very anxious, repeating that she "needs something for pain" over and over. I calmed the patient and informed her that we would attempt to control her nausea symptoms, then administer GI cocktail for the esophageal burning in her chest. I explained that I would be unable to "fix her" in 10 minutes and that a step by step approach to control her nausea and anxiety symptoms followed by a GI cocktail would take 30-45 minutes to administer. Will observe closely in ED. Reevaluation #2: 04/30/17 03:22 Previous records reviewed: CT Abdomen and Pelvis 12/18/16 1. Thickening of the distal esophagus, likely due to under distension 2. No acute process Reevaluation #3: 04/30/17 03:35 Patient was reassessed, dry heaves have resolved for the moment. Patient appears asleep following Valium administration, will administer IV Tylenol for her pain symptoms as well. Reevaluation #4: 04/30/17 03:43 Labs reviewed, AG 17, labs are otherwise grossly unremarkable with a normal Potassium and Bicarb level. UA pending. Reevaluation #5: 04/30/17 04:06 Patient reassessed, sleeping on re-examination. Patient's son awakened the patient, immediately began to moan and ask for more pain medication (IV Tylenol just completed infusing within 15 minutes). Will admit for further evaluation with GI Consultation in the morning. 04/30/17 06:50 Case was discussed with Lois Bond, will accept admission for further evaluation of her nausea symptoms. Medical Decision Making - Lab Data Result diagrams: 04/30/17 03:15 04/30/17 03:15 Disposition Disposition: Admit Clinical Impression: Intractable cyclical vomiting with nausea Disposition: Still a Patient at [facility] Decision to Admit: Admit from ER Decision to Admit Date: 04/30/17 Decision to Admit Time: 04:09 Condition: (2) Stable Time of Disposition: 04:09 Quality - Quality Measures Quality Measures: N/A - Blood Pressure Screening Does Patient Have Any of the Following: No Blood Pressure Classification: Hypertensive Reading Systolic Measurement: 144 Diastolic Measurement: 97 Screening for High Blood Pressure: < First Hypertensive BP, F/U Documented > [ [id number]] First Hypertensive Follow-up Interventions: Referral to alternative/primary care provider.
[2017-04-30 03:22] LABS: BASO % 0.2 % (0-6); EOS % 0.3 % (0-6); GRAN % 75.8 % (47-80); HEMATOCRIT 45.1 % (35.0-47.0); HEMOGLOBIN 14.9 gm/dl (11.6-16.0); LYMPH % 18.2 % (16-45); MEAN CELL VOLUME 96.6 fl (81-97); MEAN CORPUSCULAR HEMOGLOBIN 31.9 pg (27-33); MEAN PLATELET VOLUME 9.6 fl (7.4-10.4); MONO % 5.5 % (0-9); PLATELET COUNT 289 K/uL (130-400); RED BLOOD COUNT 4.67 M/uL (3.80-5.40); RED CELL DISTRIBUTION WIDTH 12.6 % (11.5-14.5)
[2017-04-30 03:35] LABS: BLOOD UREA NITROGEN 6 mg/dL (6-20); CREATININE 0.7 mg/dL (0.5-0.9); EST GLOMERULAR FILTRATION RATE > 60 mL/min
[2017-04-30] MEDS ORDERED: ACETAMINOPHEN 1,000 MG/100 ML BTL IVPB ONE (03:35)
[2017-04-30 03:36] LABS: TOTAL PROTEIN 6.3 g/dL (6.6-8.7)
[2017-04-30 03:38] LABS: GLUCOSE,RANDOM 131 mg/dL (74-109)
[2017-04-30 03:40] LABS: ALB/GLOB RATIO 1.6 (1.1-1.8); ALBUMIN 3.9 g/dL (4.0-5.0); ALT/SGPT 16 U/L (<33); AST/SGOT 13 U/L (10.0-35.0)
[2017-04-30 03:41] LABS: ALKALINE PHOSPHATASE 46 U/L (35-104); LIPASE 38 U/L (13-60)
[2017-04-30] MEDS ORDERED: PANTOPRAZOLE SODIUM IV 40 MG VIAL IVP ONE (04:19)
[2017-04-30 05:15] LABS: URINE APPEARANCE CLEAR; URINE BILIRUBIN NEGATIVE (NEGATIVE); URINE BLOOD TRACE-I (NEGATIVE); URINE COLOR YELLOW; URINE GLUCOSE (UA) NEGATIVE (NEGATIVE); URINE LEUKOCYTE ESTERASE NEGATIVE (NEGATIVE); URINE NITRITE NEGATIVE (NEGATIVE); URINE PROTEIN NEGATIVE (NEGATIVE)
[2017-04-30] MEDS: ACETAMINOPHEN 1,000 MG/100 ML BTL IVPB SCH ×4 (05:22→23:24)
[2017-04-30 05:23] LABS: URINE KETONE 80 mg/dL (NEGATIVE)
[2017-04-30 05:24] LABS: URINE BACTERIA FEW; URINE RBC 0 - 2 (NONE SEEN); URINE WBC 0 - 2 (0-2/hpf)
[2017-04-30 05:31] LABS: AMPHETAMINE SCREEN URINE NOT DETECTED; BARBITURATE SCREEN URINE NOT DETECTED; BENZODIAZEPINE SCREEN URINE NOT DETECTED; COCAINE SCREEN URINE NOT DETECTED; METHADONE SCREEN URINE NOT DETECTED; METHAMPHETAMINE SCREEN NOT DETECTED; OPIATE SCREEN URINE NOT DETECTED; OXYCODONE SCREEN URINE NOT DETECTED; PHENCYCLIDINE SCREEN URINE NOT DETECTED; PROPOXYPHENE SCREEN URINE NOT DETECTED; THC SCREEN URINE DETECTED; TRICYCLIC ANTIDEPRESSANT SCRN NOT DETECTED
[2017-04-30] MEDS: 0.9 % SODIUM CHLORIDE 1000ML 1,000 ML IV PRN (06:46)
[2017-04-30] MEDS: PANTOPRAZOLE SODIUM IV 40 MG VIAL IV SCH ×3 (06:58→21:50)
[2017-04-30] MEDS ORDERED: SUCRALFATE 1 G/10 ML UD PO ONE (06:59)
[2017-04-30] MEDS: ONDANSETRON HCL IV 4 MG/2 ML VIAL IVP PRN ×3 (07:10→16:51)
[2017-04-30] MEDS ORDERED: MAGNESIUM HYDROXIDE/AL HYDROX 30 ML, LIDOCAINE VISC 2% 200 MG PO ONE ×2 (08:11)
--- NOTE | 2017-04-30 09:14 | History & Physical ---
History of Present Illness - Date of Service Date of Service for History & Physical: 04/30/17 - History of Present Illness Admitting Diagnosis: Intractable nausea. Cyclic vomiting by history History of Present Illness: Miryam is a 37 year-old female who presented to the ED on 04/30/17 because she was experiencing severe nausea and vomiting for 23 hours. She states that she did vomit streaks of bright red blood before coming the ED. She also complains of severe epigastric pain. She states that she has episodes of nausea and vomiting every morning and that it usually resolves within an hour. She stopped taking her prilosec 4 days prior to the onset of her symptoms and she states that she has not used ETOH since 12/2016. Her vital signs in ED were 144/97, HR 88, RR 18, 98.2F, and 100% on room air. She was treated with zofran and valium, which did help relieve her nausea and pain. Her laboratory findings were unremarkable, except for slightly elevated anion gap of 17.0 and urine ketones of 80 mg/dl. She was admitted to inpatient intractable nausea and vomitin and GI was consulted. Patient has a history of cyclical vomiting syndrome with unknown cause. She was admitted from 12/18/16 through 12/21/16 for similar symptoms. During that visit, she had a CT without contrast that showed a thickened distal esophagus and a small uncomplicated umbilical hernia. She also had an EGD that showed severe ulcerative esophagitis. A repeat EGD was recommended 6-8 weeks after to assess healing, but was never completed. Other history includes daily smoker, acid reflux, anxiety, ETOH abuse, and marijuana use. 04/30/17 1030- Miryam is resting comfortably in bed. She was in the shower for 3 hours this morning and again this afternoon and she states the warm water does help her nausea and pain. She has mild epigastric pain, but no abdominal pain elsewhere. She has not vomited since early this morning, but she has been dry heaving. Her vital signs this morning were BP 154/101, HR 66, RR 18, T 97.7F. PCP: (no current PCP) MGI: Dr. Koch (from previous admission) Travel Screening - Travel/Exposure Within Last 30 Days Have you traveled within the last 30 days?: No - Travel/Exposure Within Last Year Have you traveled outside the [place] in the last year?: No - Additonal Travel Details Have you been exposed to anyone with a communicable illness?: No - Travel Symptoms Symptom Screening: None Review of Systems Constitutional: Denies: Chills, Fever, Malaise, Night sweats Eyes: Denies: Eye discharge, Eye pain ENT: Denies: Congestion, Ear pain, Epistaxis Respiratory: Denies: Cough, Dyspnea Cardiovascular: Denies: Chest pain, Dyspnea on exertion Endocrine: Denies: Fatigue, Heat or cold intolerance Gastrointestinal: Reports: Abdominal pain, Nausea, Vomiting. Denies: Constipation Genitourinary: Denies: Incontinence, Retention Musculoskeletal: Denies: Arthralgia, Back pain, Gout, Joint swelling Skin: Denies: Bruising, Change in color Neurological: Denies: Abnormal gait, Confusion, Headache, Seizure Psychiatric: Reports: Anxiety Hematological/Lymphatic: Denies: Anemia, Blood Clots Past Medical History - SOCIAL HISTORY Smoking Status: Current every day smoker Alcohol Use: None Alcohol Use Comment: quit in November Drug Use: Heavy Drug Use Detail:: Marijuana - RESPIRATORY Hx Respiratory Disorders: No - CARDIOVASCULAR Hx Cardio Disorders: No - NEURO Hx Neuro Disorders: No - GI Hx GI Disorders: Yes Hx Abdominal Pain: Yes Hx Reflux: Yes Hx Nausea/Vomiting: Yes (cyclical vomiting syndrome) Hx Ulcer: Yes (Gastric Ulcer 11/2016) Comment:: hx of a lambert badillo tear w/ hyperemesis gravidarum, ulcerative esophagitis - Hx Genitourinary Disorders: No - ENDOCRINE Hx Endocrine Disorders: No - MUSCULOSKELETAL Hx Musculoskeletal Disorders: No - PSYCH Hx Psych Problems: No - HEMATOLOGY/ONCOLOGY Hx Hematology/Oncology Disorders: No Family Medical History Any Significant Family History?: No H&P Meds/Allergies - Allergies Allergies: Allergies Allergy/AdvReac Type Severity Reaction Status Date / Time cefaclor [From Ceclor] Allergy Severe HIVES Verified 12/18/16 16:59 - Active Medications Active Medications: Current Medications Sodium Chloride () 1,000 mls @ 125 mls/hr IV .Q8H PRN PRN Reason: LARGE VOLUME IV Last Admin: 04/30/17 06:46 Dose: 125 mls/hr Acetaminophen (Ofirmev) 1,000 mg in 100 mls @ 400 mls/hr IVPB Q6H TAYE Last Admin: 04/30/17 05:22 Dose: Not Given Promethazine HCl 25 mg/ Sodium (Chloride) 101 mls @ 200 mls/hr IVPB Q6H PRN PRN Reason: NAUSEA/VOMITING Ondansetron HCl (Zofran) 4 mg IVP Q4H PRN PRN Reason: NAUSEA Last Admin: 04/30/17 07:10 Dose: 4 mg Pantoprazole Sodium (Protonix Iv) 40 mg IV DAILY TAYE Last Admin: 04/30/17 06:58 Dose: 40 mg Physical Exam - Vital Signs Vital Signs: Vital Signs - Last 24 Hrs Temp Pulse Resp BP Pulse Ox 04/30/17 05:17 97.7 F 66 18 154/101 100 04/30/17 04:55 16 - General General Appearance: Alert, Oriented x3, Cooperative, Mild distress, Anxious, Other (Patient appears very anxious on examination, repeating "I need something for my pain" over and over, does exhibit dry heaves on examination without producing any emesis.) Limitations: No limitations - Head Head exam: Atraumatic, Normocephalic, Normal inspection Head exam detail: negative: Abrasion, Contusion, Longoria's sign, General tenderness, Hematoma, Laceration - Eye Eye exam: Normal appearance. negative: Conjunctival injection, Periorbital swelling, Periorbital tenderness, Scleral icterus - ENT Ear exam: negative: Auricular hematoma, Auricular trauma Nasal Exam: negative: Active bleeding, Discharge, Dried blood, Foreign body Mouth exam: negative: Drooling, Laceration, Muffled voice, Tongue elevation - Neck Neck exam: Normal inspection. negative: Meningismus, Tenderness - Respiratory Respiratory exam: Normal lung sounds bilaterally. negative: Rales, Respiratory distress, Rhonchi, Stridor - Cardiovascular Cardiovascular Exam: Regular rate, Normal rhythm, Normal heart sounds - GI/Abdominal GI/Abdominal exam: Soft, Normal bowel sounds, Tenderness. negative: Rebound, Rigid (with palpation of epigastric area) - Rectal Rectal exam: Deferred - exam: Deferred - Extremities Extremities exam: Normal inspection. negative: Calf tenderness, Pedal edema, Tenderness - Back Back exam: Denies: CVA tenderness (R), CVA tenderness (L) - Neurological Neurological exam: Alert, Oriented X3 - Psychiatric Psychiatric exam: Anxious - Skin Skin exam: Normal color. negative: Abrasion Type of lesion: negative: abrasion Results - Labs Result Diagrams: 04/30/17 03:15 04/30/17 03:15 Labs Last 24 Hours: Laboratory Results - last 24 hr 04/30/17 04/30/17 05:23 05:31 Urine Color Yellow Urine Appearance Clear Urine pH 6.5 Ur Specific [place] 1.020 Urine Protein Negative Urine Glucose (UA) Negative Urine Ketones 80 mg/dl H Urine Blood Trace-i Urine Nitrite Negative Urine Bilirubin Negative Urine Urobilinogen 1.0 Ur Leukocyte Esterase Negative Urine RBC 0 - 2 Urine WBC 0 - 2 Ur Epithelial Cells 7 - 10 Urine Bacteria Few Urine Opiates Screen Not detected Ur Oxycodone Screen Not detected Urine Methadone Screen Not detected Ur Propoxyphene Screen Not detected Ur Barbituates Screen Not detected Ur Tricyclics Screen Not detected Ur Phencyclidine Scrn Not detected Ur Amphetamine Screen Not detected U Methamphetamines Scrn Not detected U Benzodiazepines Scrn Not detected Urine Cocaine Screen Not detected Urine Cannabis Screen Detected VTE H&P Assessment - Risk for VTE Risk for VTE: Yes Risk Level: Low Risk Assessment Date: 04/30/17 Risk Assessment Time: 13:35 VTE Orders Placed or Will Be Placed: Yes Plan - Detailed Diagnosis and Plan (1) Intractable cyclical vomiting with nausea Current Visit: Yes Status: Acute Base Code: G43.A1 - CYCLICAL VOMITING, INTRACTABLE Comment: 04/30/17- Advanace diet to clear liquids, continue 0.9% NaCl at 125ml/hour, zofran 4mg IV q4 hours prn, and phenergen 25mg q6 hours. Start carafate 1g 4 times per day. Continue protonix 40mg IV twice daily. GI consulted, Dr. Michaels evaluated pt and feels her sypmtoms are related to marijuana -induced cyclical vomiting and he does not feel repeat EGD is necessary at this point. Repeat labs q am with possible discharge if tolerating clear liquids. (2) Acid reflux Current Visit: No Status: Acute Base Code: K21.9 - GASTRO-ESOPHAGEAL REFLUX DISEASE WITHOUT ESOPHAGITIS Comment: 04/30/17: continue protonix 40mg IV twice daily and carafate 1 gm QID prn. Ofirmev 1g IV q6 hours for epigastric pain. (3) Anxiety Current Visit: Yes Status: Acute Base Code: F41.9 - ANXIETY DISORDER, UNSPECIFIED Comment: 04/30/17- Pt. reports long history of anxiety, previously treated by prior PCP but she lost her insurance. She used to take ativan 1mg daily and she has never been on SSRI therapy. We will try vistiril 50mg PO q6 hours prn for anxiety. (4) DVT prophylaxis Current Visit: Yes Status: Acute Base Code: [id number] - Comment: 04/30/17- Pt. is low risk, however, has limited mobility at this time (5) Full code status Current Visit: No Status: Acute Base Code: Z78.9 - OTHER SPECIFIED HEALTH STATUS Comment: 04/30/17: pt remains full code
[2017-04-30] MEDS: PROMETHAZINE HCL 25 MG in 0.9 % SODIUM CHLORIDE 100ML 100 ML IVPB PRN ×2 (10:40→19:28)
[2017-04-30] MEDS ORDERED: HYDROXYZINE PAMOATE 25 MG CAPSULE PO ONE (11:00)
[2017-04-30] MEDS ORDERED: LORAZEPAM 2 MG/ML VIAL IV ONE (11:41)
[2017-04-30] MEDS: SUCRALFATE 1 G/10 ML UD PO SCH ×4 (13:24→21:50)
[2017-04-30] MEDS: HYDROXYZINE PAMOATE 25 MG CAPSULE PO PRN ×2 (16:52→23:17)
[2017-04-30] MEDS: LORAZEPAM 2 MG/ML VIAL IV PRN (22:29)
[2017-04-30] MEDS: ENOXAPARIN 40 MG/0.4 ML SYR SQ SCH (23:18)
[2017-05-01] MEDS: LORAZEPAM 2 MG/ML VIAL IV PRN ×3 (03:21→11:28)
[2017-05-01] MEDS: ONDANSETRON HCL IV 4 MG/2 ML VIAL IVP PRN ×2 (03:21→10:28)
[2017-05-01] MEDS ORDERED: TEMAZEPAM 15 MG CAPSULE PO PRN (05:16)
[2017-05-01] MEDS: ACETAMINOPHEN 1,000 MG/100 ML BTL IVPB SCH ×2 (06:25→10:29)
[2017-05-01 06:40] LABS: ALB/GLOB RATIO 1.8 (1.1-1.8); ALBUMIN 3.8 g/dL (4.0-5.0); ALKALINE PHOSPHATASE 42 U/L (35-104); ALT/SGPT 13 U/L (<33); AST/SGOT 11 U/L (10.0-35.0); BLOOD UREA NITROGEN 6 mg/dL (6-20); CREATININE 0.6 mg/dL (0.5-0.9); EST GLOMERULAR FILTRATION RATE > 60 mL/min; GLUCOSE,RANDOM 90 mg/dL (74-109); TOTAL PROTEIN 5.9 g/dL (6.6-8.7)
--- NOTE | 2017-05-01 07:10 | Medical Records Consult ---
DATE OF CONSULTATION: 04/30/2017 REASON FOR CONSULTATION: Recurring vomiting. HISTORY OF PRESENT ILLNESS: The patient is a pleasant 37-year-old female seen at the request of Lois Garsia for evaluation of recurring nausea and vomiting which began 1 day ago. She has had a previous history of the same and, in fact, had consultation and upper endoscopy completed by my associate Dr. Koch in December of this year. At that time, it was thought she had cyclic vomiting related to THC. Upper endoscopy revealed distal esophageal ulcerations with unremarkable gastric biopsies taken. The patient states that she does better when she takes a proton pump inhibitor on a daily basis but has not taken it for the past few days. She states that she smokes marijuana regularly and it sounds like a minimum of 2 marijuana cigarettes daily. At times she might smoke more. She admits to taking multiple hot showers which helps her feel better. She also complains of epigastric discomfort. She smokes on a daily basis. She denies alcohol consumption stating she quit in November of this year. She admits to, as mentioned, heavy marijuana usage. Additionally, she had a Tamia-Benitez tear with hyperemesis gravidarum during in the past. She denies any travel within the last month. She denies any significant family medical history. REVIEW OF SYSTEMS: Noted in the medical record and reviewed. PHYSICAL EXAMINATION: GENERAL: She is quite lethargic, having been medicated with Ativan for anxiety. She is responsive. She thought she was feeling a bit better today than over the time of admission. HEART: Regular. LUNGS: Clear bilaterally. ABDOMEN: Soft and without tenderness. EXTREMITIES: Free from edema. NEUROMUSCULAR: Examination seems to be grossly unremarkable. LABORATORY DATA: Normal CBC. Her comprehensive metabolic panel was also unremarkable. Serum lipase was 38. test was negative. RADIOGRAPHIC DATA: CT scan demonstrated some thickening of the distal esophagus likely due to under-distention. No acute process was noted. IMPRESSIONS: 1. Your patient is suffering with cyclic vomiting syndrome at least in part related to chronic marijuana usage. The patient's nurse relates that the patient might take showers lasting 3 hours at a time. 2. She has chronic gastroesophageal reflux disease with history of esophageal ulcerations noted in December of this year. She was improved with the use of proton pump inhibitor therapy but stopped this medication 4 days ago. RECOMMENDATIONS: 1. At this point, I would continue acid blockade therapy. She can be offered clear liquids and her diet advanced as tolerated. 2. There are some clinical trials suggesting that the use of Elavil might help with cyclic vomiting syndrome, but we will leave this up to primary care team to offer patient if they want. Thank you for allowing me to participate in her care. Should you have any questions in reference to this consultation, Please do not hesitate to call me. Note: My impressions and recommendations were discussed with the primary care team at this time. CC: Lois MAXWELL
[2017-05-01] MEDS: 0.9 % SODIUM CHLORIDE 1000ML 1,000 ML IV PRN (10:20)
[2017-05-01] MEDS: SUCRALFATE 1 G/10 ML UD PO SCH ×2 (10:21→17:35)
[2017-05-01] MEDS: ENOXAPARIN 40 MG/0.4 ML SYR SQ SCH (10:21)
[2017-05-01] MEDS: PANTOPRAZOLE SODIUM IV 40 MG VIAL IV SCH (10:23)
--- NOTE | 2017-05-01 17:23 | Discharge Summary ---
Providers Discharge Summary Date: 05/01/17 Date of admission: 04/30/17 04:54 Attending physician: Oneil Tucker Physical Exam - Vital Signs Vital Signs: Vital Signs - Last 24 Hrs Temp Pulse Resp BP Pulse Ox 05/01/17 09:00 74 20 05/01/17 08:30 98.2 F 74 20 118/73 05/01/17 05:00 97.9 F 74 18 154/96 99 04/30/17 21:00 98.1 F 64 18 152/79 100 - General General Appearance: Alert, Oriented x3, Cooperative, Mild distress, Anxious, Other (Patient appears very anxious on examination, repeating "I need something for my pain" over and over, does exhibit dry heaves on examination without producing any emesis.) Limitations: No limitations - Head Head exam: Atraumatic, Normocephalic, Normal inspection Head exam detail: negative: Abrasion, Contusion, Longoria's sign, General tenderness, Hematoma, Laceration - Eye Eye exam: Normal appearance. negative: Conjunctival injection, Periorbital swelling, Periorbital tenderness, Scleral icterus - ENT Ear exam: negative: Auricular hematoma, Auricular trauma Nasal Exam: negative: Active bleeding, Discharge, Dried blood, Foreign body Mouth exam: negative: Drooling, Laceration, Muffled voice, Tongue elevation - Neck Neck exam: Normal inspection. negative: Meningismus, Tenderness - Respiratory Respiratory exam: Normal lung sounds bilaterally. negative: Rales, Respiratory distress, Rhonchi, Stridor - Cardiovascular Cardiovascular Exam: Regular rate, Normal rhythm, Normal heart sounds Peripheral Pulses: 2+: Radial (R), Radial (L), Dorsalis Pedis (R), Dorsalis Pedis (L) - GI/Abdominal GI/Abdominal exam: Soft, Normal bowel sounds, Tenderness. negative: Rebound, Rigid (with palpation of epigastric area) - Rectal Rectal exam: Deferred - exam: Deferred - Extremities Extremities exam: Normal inspection. negative: Calf tenderness, Pedal edema, Tenderness - Back Back exam: Denies: CVA tenderness (R), CVA tenderness (L) - Neurological Neurological exam: Alert, Oriented X3 - Psychiatric Psychiatric exam: Anxious - Skin Skin exam: Normal color. negative: Abrasion Type of lesion: negative: abrasion Hospitalization - Hospitalization Admission Diagnosis: Intractable nausea. Cyclic vomiting by history - Problem List/Discharge Diagnosis (1) Intractable cyclical vomiting with nausea Status: Acute Base Code: G43.A1 - CYCLICAL VOMITING, INTRACTABLE Comment: - Advanace diet to clear liquids, continue 0.9% NaCl at 125ml/hour, zofran 4mg IV q4 hours prn, and phenergen 25mg q6 hours. Start carafate 1g 4 times per day. Continue protonix 40mg IV twice daily. GI consulted, Dr. Michaels evaluated pt and feels her sypmtoms are related to marijuana-induced cyclical vomiting and he does not feel repeat EGD is necessary at this point. Repeat labs q am with possible discharge if tolerating clear liquids. (2) Acid reflux Status: Acute Base Code: K21.9 - GASTRO-ESOPHAGEAL REFLUX DISEASE WITHOUT ESOPHAGITIS Comment: 04/30/17: continue protonix 40mg IV twice daily and carafate 1 gm QID prn. Ofirmev 1g IV q6 hours for epigastric pain. (3) Anxiety Status: Acute Base Code: F41.9 - ANXIETY DISORDER, UNSPECIFIED Comment: - Pt. reports long history of anxiety, previously treated by prior PCP but she lost her insurance. She used to take ativan 1mg daily and she has never been on SSRI therapy. We will try vistiril 50mg PO q6 hours prn for anxiety. - Hospitalization Course Disposition: Home, Self-Care Hospital Course: 37 y/o female with severe nausea and vomiting which began 2 days ago. The patient notes that initially her vomitous was clear but hen she began noticing streaks of blood. She also describes abdominal pain 10/10 in severity without radiation. She has history of cyclical vomiting with previous admissions for the same and has been on Prilosec which she says helps but she has not been able to take because her medication is in her car which broke down in [place]. She smokes marajauna daily and denies fever, chills, diarrhea, constipation, loss of appetite or weight changes. 04/30 - started on Zofran, valium and IV pain medication. Patient made NPO and labs ordered which did not show any remarkable changes. GI recommends d/c of marajuana as it is considered the trigger for her symptoms. Patient still describes nausea but no vomiting. She has taken multiple showers throughout the day to soothe symptoms. Exhibits pain seeking behavior and asking for more pain medication. 05/01 - Patient complains of sleep disturbance and is given Ativan 0.5mg IV which she says is not helping. She continues to complain of nausea but is able to tolerate advancement of diet to full liquids. Administered an additional dose of Ativan 0.5mg and patient was able to sleep comfortably throughout the day. She was able to tolerate full diet in the afternoon without the need for pain medication of antiemetics. Discussed the need to d/c cannabis use and to continue taking PPIs as prescribed. SW discussed outpatient follow up regarding PCP care. Abnormal Labs: Abnormal Lab Results 04/30/17 05/01/17 Range/Units 05:23 06:09 Calcium 8.3 L (8.6-10.0) mg/dL Total Bilirubin 1.10 H (0.2-1.0) mg/dL Total Protein 5.9 L (6.6-8.7) g/dL Albumin 3.8 L (4.0-5.0) g/dL Urine Ketones 80 mg/dl H (NEGATIVE) Condition at Discharge: (2) Stable Discharge Plan - Discharge Instructions Instructions: Sucralfate (By mouth), Lorazepam (By mouth), Omeprazole (By mouth ), Ondansetron (By mouth), Acute Nausea and Vomiting (DC) Additional Instructions: A Community Health Worker from [facility] will be contacting you to assist with medicaid enrollment and to connect you with medical and behavioral health resources. Contact [facility] 01/01 at if experiencing a mental health crisis. The Crisis Services Department provides evaluation and screening for for persons with Medicaid or those who are uninsured. You can also contact [facility] 24 Hour Crisis Line at Scripts have been written and to be scanned into chart. Ativan 0.5mg 4 tabs PO PRN Zofran 4mg Q4H PRN 10 tabs Omeprazole 20mg Q12H, 30 tabs Carafate 1gm PO QID Follow up with Primary Care Physician in one week. Quality Measures - Quality Measures Quality Measures: Documentation of Current Medications in Medical Record, Screening for High Blood Pressure and F/U Documented - Current Medications Quality Measure: Measure #130: Documentation of Current Medications Documentation of Current Medications: <Current Medications Documented/Reviewed> [G0940] - Blood Pressure Screening Quality Measure: Screening for High Blood Pressure and Follow-Up Documented Does Patient Have Any of the Following: No Blood Pressure Classification: Hypertensive Reading Systolic Measurement: 144 Diastolic Measurement: 97 Screening for High Blood Pressure: < Normal BP, F/U Not Required > [G0790] - Elder Abuse Suspicion Index EASI Reference Information: Noe PETERSON, Ambrocio C, Emmanuel D, Rolando Stewart.Development and validation of a tool to assist physicians identification of elder abuse: The Elder Abuse Suspicion Index (EASI ). Journal of Elder Abuse and Neglect, 2008; 20 (3): 276-300.
== END 2017-05-01 19:30 | disposition home or self-care (01) ==
LOC: ER 02:58 → MEDSURG 04:54
PROVIDERS: ADMIT Internal Medicine; ATTEND Internal Medicine
DX: F12.188 Cannabis abuse with other cannabis-induced disorder (principal); G43.A1 Cyclical vomiting, in migraine, intractable; Z72.0 Tobacco use; K21.9 Gastro-esophageal reflux disease without esophagitis; F41.9 Anxiety disorder, unspecified; G47.9 Sleep disorder, unspecified
CPT/HCPCS: 99285 ×2; 96365; 96366; 96375; 96361; 96368; 83690; 85025; 80053 ×2; 81001; 84703; 80305; G0378 ×2; G0480; J2405 ×2; J2060 ×2; 80320; 99217; 99220; C9113; J1650; J2550; J3360; J7030

== ENCOUNTER 2017-10-26 16:31 | Emergency (ER) | payer SELFPAY ==
--- NOTE | 2017-10-26 16:48 | Emergency Department Record ---
History of Present Illness - General Stated complaint: MAY HAVE STD Time Seen by Provider: 10/26/17 16:40 Source: Patient Mode of Arrival: Ambulatory Limitations: No limitations - History of Present Illness Initial comments: 37 yo female presents with a concern about an STD exposure. She reports her male sexual partner was informed by his prior female partner that she has chlamydia. The patient is asymptomatic. She has no history STD. She would like to be checked and treated. MD Complaint: Possible STD -: Days(s) Radiation: Other Severity: Mild Quality: Aching Consistency: Constant Improves with: None Worsens with: None Associated Symptoms: Denies other symptoms - Related Data Home Medications Medication Instructions Recorded Confirmed Last Taken Omeprazole 40 mg PO DAILY 10/26/17 10/26/17 1 Day Ago ~10/25/17 Previous Rx's Medication Instructions Recorded Metronidazole [Flagyl] 500 mg PO BID #14 tablet 10/26/17 Allergies Allergy/AdvReac Type Severity Reaction Status Date / Time cefaclor [From Ceclor] Allergy Severe HIVES Verified 10/26/17 16:48 Review of Systems Constitutional: Denies: Chills, Fever, Malaise, Weakness Eyes: Denies: Eye discharge ENT: Denies: Congestion, Throat pain Respiratory: Denies: Cough, Dyspnea, Hemoptysis, Stridor, Wheezes Cardiovascular: Denies: Chest pain, Palpitations, Syncope Endocrine: Denies: Fatigue Gastrointestinal: Denies: Abdominal pain, Diarrhea, Nausea, Vomiting Genitourinary: Denies: Abnormal menses, Discharge, Dyspareunia, Dysuria, Frequency, Hematuria, Incontinence, Urgency Musculoskeletal: Denies: Arthralgia, Back pain, Myalgia, Neck pain Skin: Denies: Bruising, Change in color, Rash Neurological: Denies: Headache, Numbness, Weakness Psychiatric: Denies: Anxiety Hematological/Lymphatic: Denies: Blood Clots, Easy bleeding, Easy bruising, Swollen glands Past Medical History - SOCIAL HISTORY Smoking Status: Current every day smoker Alcohol Use Comment: quit in November Drug Use: Heavy Drug Use Detail:: Marijuana - RESPIRATORY Hx Respiratory Disorders: No - CARDIOVASCULAR Hx Cardio Disorders: No - NEURO Hx Neuro Disorders: No - GI Hx GI Disorders: Yes Hx Abdominal Pain: Yes Hx Reflux: Yes Hx Nausea/Vomiting: Yes (cyclical vomiting syndrome) Hx Ulcer: Yes (Gastric Ulcer 11/2016) Comment:: hx of a lambert badillo tear w/ hyperemesis gravidarum, ulcerative esophagitis - Hx Genitourinary Disorders: No - ENDOCRINE Hx Endocrine Disorders: No - MUSCULOSKELETAL Hx Musculoskeletal Disorders: No - PSYCH Hx Psych Problems: No - HEMATOLOGY/ONCOLOGY Hx Hematology/Oncology Disorders: No Physical Exam - General General Appearance: Alert, Oriented x3, Cooperative, No acute distress Limitations: No limitations - Head Head exam: Normal inspection - Eye Eye exam: Normal appearance, PERRL. negative: Conjunctival injection, Scleral icterus - ENT ENT exam: Normal exam, Mucous membranes moist Ear exam: Normal external inspection Nasal Exam: Normal inspection Mouth exam: Normal external inspection - Neck Neck exam: Normal inspection, Full ROM. negative: Tenderness - Respiratory Respiratory exam: Normal lung sounds bilaterally. negative: Respiratory distress - Cardiovascular Cardiovascular Exam: Regular rate, Normal rhythm, Normal heart sounds - GI/Abdominal GI/Abdominal exam: Soft. negative: Tenderness - Rectal Rectal exam: Deferred - Extremities Extremities exam: Normal inspection - Back Back exam: Reports: Normal inspection, Full ROM. Denies: Muscle spasm, Rash noted, Tenderness - Neurological Neurological exam: Alert, Normal gait, Oriented X3 - Psychiatric Psychiatric exam: Normal affect, Normal mood - Skin Skin exam: Dry, Intact, Normal color, Warm Course - Reevaluation(s) Reevaluation #1: 10/26/17 17:05 The patient has a cephalosporin allergy per the guidelines 2gm of Athromycin ordered 10/26/17 17:07 The UA and HCG are negative 10/26/17 18:39 The wet prep was positive for clue cells She was provided Flagyl She was given instructions for no alcohol while on Flagyl, no unprotected sex 2 weeks, follow up at the health department for a [employer] and possible HIV testing. Disposition Disposition: Discharge Clinical Impression: STD exposure, Bacterial vaginosis Disposition: Home, Self-Care Condition: (1) Good Instructions: Bacterial Vaginosis (ED), Sexually Transmitted Diseases (ED), Safe Sex (ED) Additional Instructions: Call to get a new get a new family doctor as well as call the health department for follow up You should not have unprotected sex for 2 weeks Prescriptions: Metronidazole [Flagyl] 500 mg PO BID #14 tablet Forms: Patient Portal Access Time of Disposition: 17:07 Quality - Quality Measures Quality Measures: N/A - Blood Pressure Screening Does Patient Have Any of the Following: No Blood Pressure Classification: Hypertensive Reading Systolic Measurement: 127 Diastolic Measurement: 95 Screening for High Blood Pressure: < Pre-Hypertensive BP, F/U Documented > [ G8950] Pre-Hypertensive Follow-up Interventions: Referral to alternative/primary care provider.
[2017-10-26] MEDS ORDERED: AZITHROMYCIN 500 MG TABLET PO ONE ×2 (16:54→17:06)
[2017-10-26 17:00] LABS: URINE APPEARANCE CLEAR; URINE BILIRUBIN NEGATIVE (NEGATIVE); URINE BLOOD NEGATIVE (NEGATIVE); URINE COLOR YELLOW; URINE GLUCOSE (UA) NEGATIVE (NEGATIVE); URINE KETONE NEGATIVE (NEGATIVE); URINE LEUKOCYTE ESTERASE NEGATIVE (NEGATIVE); URINE NITRITE NEGATIVE (NEGATIVE); URINE PROTEIN NEGATIVE (NEGATIVE); URINE UROBILINOGEN 0.2 E.U./dL (0.20 - 1.00)
[2017-10-26 17:02] LABS: HCG,QUALITATIVE URINE NEGATIVE (NEGATIVE)
[2017-10-26] MEDS ORDERED: METRONIDAZOLE 250 MG TABLET PO ONE (17:16)
== END 2017-10-26 17:26 | disposition home or self-care (01) ==
LOC: ER 16:31
DX: N76.0 Acute vaginitis (principal); Z20.2 Contact with and (suspected) exposure to infections with a predominantly sexual mode of transmission; F17.210 Nicotine dependence, cigarettes, uncomplicated
CPT/HCPCS: 81003; 81025; 87210; 99283

== ENCOUNTER 2018-04-13 18:24 | Emergency (ER) | payer MEDICAID ==
--- NOTE | 2018-04-13 18:36 | Emergency Department Record ---
History of Present Illness - General Chief complaint: Female Urogenital Problem Stated complaint: UIT Time Seen by Provider: 04/13/18 18:30 Source: Patient Mode of Arrival: Ambulatory Limitations: No limitations - History of Present Illness Initial comments: 38 yo female presents to ED for evaluation of urinary frequency, burning, and urgency symptoms that began this morning. Patient reports "I think I have a UTI ", denies fevers, chills, nausea, vomiting, or flank pain symptoms. Patient denies health problems at her baseline. MD Complaint: Dysuria Onset/Timin -: Hour(s) Severity: Mild Severity scale (1-10): 3 Quality: Burning Consistency: Constant Improves with: None Worsens with: Urination Associated Symptoms: Dysuria - Related Data Sexually active: Yes Previous Rx's Medication Instructions Recorded Nitrofurantoin Monohyd/M-Cryst 100 mg PO BID #13 capsule 04/13/18 [Macrobid 100 mg Capsule] Allergies Allergy/AdvReac Type Severity Reaction Status Date / Time cefaclor [From [facility]] Allergy Severe HIVES Verified 10/26/17 16:48 Travel Screening - Travel/Exposure Within Last 30 Days Have you traveled within the last 30 days?: No Review of Systems Constitutional: Denies: Chills, Fever, Malaise, Night sweats Eyes: Denies: Eye discharge, Eye pain ENT: Denies: Congestion, Ear pain, Epistaxis Respiratory: Denies: Cough, Dyspnea Cardiovascular: Denies: Chest pain, Dyspnea on exertion Endocrine: Denies: Fatigue, Heat or cold intolerance Gastrointestinal: Denies: Abdominal pain, Nausea, Vomiting Genitourinary: Reports: Dysuria, Frequency. Denies: Incontinence, Retention Musculoskeletal: Denies: Arthralgia, Back pain, Gout, Joint swelling Skin: Denies: Bruising, Change in color Neurological: Denies: Abnormal gait, Confusion, Headache Psychiatric: Denies: Anxiety Hematological/Lymphatic: Denies: Anemia, Blood Clots Past Medical History - SOCIAL HISTORY Smoking Status: Current every day smoker - RESPIRATORY Hx Respiratory Disorders: No - CARDIOVASCULAR Hx Cardio Disorders: No - NEURO Hx Neuro Disorders: No - GI Hx GI Disorders: Yes Hx Abdominal Pain: Yes Hx Reflux: Yes Hx Nausea/Vomiting: Yes (cyclical vomiting syndrome) Hx Ulcer: Yes (Gastric Ulcer 11/2016) Comment:: hx of a lambert badillo tear w/ hyperemesis gravidarum, ulcerative esophagitis - Hx Genitourinary Disorders: No - ENDOCRINE Hx Endocrine Disorders: No - MUSCULOSKELETAL Hx Musculoskeletal Disorders: No - PSYCH Hx Psych Problems: No - HEMATOLOGY/ONCOLOGY Hx Hematology/Oncology Disorders: No Family Medical History Any Significant Family History?: No Physical Exam - General General Appearance: Alert, Oriented x3, Cooperative, Mild distress Limitations: No limitations - Head Head exam: Atraumatic, Normocephalic, Normal inspection Head exam detail: negative: Abrasion, Contusion, Longoria's sign, General tenderness, Hematoma, Laceration - Eye Eye exam: Normal appearance. negative: Conjunctival injection, Periorbital swelling, Periorbital tenderness, Scleral icterus - ENT Ear exam: negative: Auricular hematoma, Auricular trauma Nasal Exam: negative: Active bleeding, Discharge, Dried blood, Foreign body Mouth exam: negative: Drooling, Laceration, Muffled voice, Tongue elevation - Neck Neck exam: Normal inspection. negative: Meningismus, Tenderness - Respiratory Respiratory exam: Normal lung sounds bilaterally. negative: Respiratory distress, Rhonchi, Stridor - Cardiovascular Cardiovascular Exam: Regular rate, Normal rhythm, Normal heart sounds - GI/Abdominal GI/Abdominal exam: Soft. negative: Distended, Rebound, Rigid, Tenderness - Rectal Rectal exam: Deferred - exam: Other (MIld friability to the cervix is present, nis significant discharge is present) - Extremities Extremities exam: Normal inspection. negative: Calf tenderness, Pedal edema, Tenderness - Back Back exam: Denies: CVA tenderness (R), CVA tenderness (L) - Neurological Neurological exam: Alert, Normal gait, Oriented X3 - Psychiatric Psychiatric exam: Normal affect, Normal mood - Skin Skin exam: Normal color. negative: Abrasion Type of lesion: negative: abrasion Course Vital Signs 04/13/18 18:31 Temperature 98.6 F Pulse Rate [ 99 H Pulse Ox Probe] Respiratory 16 Rate Blood Pressure 134/103 [Left Arm] Pulse Ox 99 - Reevaluation(s) Reevaluation #1: 04/13/18 18:51 Urinalysis was reviewed: 0-2 RBCs 10-15 WBCs No bacteria Patient was counsled re: urinalysis results, is requesting pelvic examination to exclude chlaydia as a source of her dysuria symptoms. Will perform pelvic examination when set -up. Reevaluation #2: 04/13/18 19:41 Wet prep was reviewed and appears negative for trichomonas or yeast. Will treat with Zithromax 2 grams x 1 for possible cervicitis, them Macrobid BID for 7 days for early UTI/dysuria coverage. Patient agrees with the plan of care and appears stable for discharge at this time. Disposition Disposition: Discharge Clinical Impression: Cervicitis Acute cystitis Qualifiers: Hematuria presence: without hematuria Qualified Code(s): N30.00 - Acute cystitis without hematuria Disposition: Home, Self-Care Condition: (2) Stable Instructions: Urinary Tract Infection in Women (ED) Additional Instructions: Return to ED if your symptoms worsen or if you have any concerns. Macrobid as directed. Follow-up with your family doctor in 3-5 days as directed. Prescriptions: Nitrofurantoin Monohyd/M-Cryst [Macrobid 100 mg Capsule] 100 mg PO BID #13 capsule Forms: Patient Portal Access Time of Disposition: 19:44 Quality - Quality Measures Quality Measures: N/A - Blood Pressure Screening Does Patient Have Any of the Following: No Blood Pressure Classification: Pre-Hypertensive BP Reading Systolic Measurement: 120 Diastolic Measurement: 89 Screening for High Blood Pressure: < Pre-Hypertensive BP, F/U Documented > [ G8950] Pre-Hypertensive Follow-up Interventions: Referral to alternative/primary care provider.
[2018-04-13 18:43] LABS: URINE APPEARANCE TURBID; URINE BILIRUBIN SMALL (NEGATIVE); URINE BLOOD TRACE-I (NEGATIVE); URINE COLOR RED; URINE KETONE TRACE (NEGATIVE); URINE LEUKOCYTE ESTERASE MODERATE (NEGATIVE); URINE NITRITE POSITIVE (NEGATIVE); URINE UROBILINOGEN >=8.0 E.U./dL (0.20 - 1.00)
[2018-04-13 18:47] LABS: URINE PROTEIN 300 mg/dL (NEGATIVE)
[2018-04-13 18:49] LABS: URINE BACTERIA NONE SEEN; URINE EPITHELIAL CELLS 0 - 2 (FEW); URINE RBC 0 - 2 (NONE SEEN)
[2018-04-13] MEDS ORDERED: AZITHROMYCIN 500 MG TABLET PO ONE (19:40)
[2018-04-13] MEDS ORDERED: NITROFURANTOIN MONO 100 MG CAPSULE PO ONE (19:41)
[2018-04-15 23:12] LABS: GC SPECIMEN TYPE Cervix
== END 2018-04-13 19:51 | disposition home or self-care (01) ==
LOC: ER 18:24
DX: N72 Inflammatory disease of cervix uteri (principal); N30.00 Acute cystitis without hematuria; F17.210 Nicotine dependence, cigarettes, uncomplicated
CPT/HCPCS: 99284 ×2; 81001; Q0111; 87210